=== PATIENT | female | born 1965 | race Caucasian/White ===

== ENCOUNTER 2016-04-22 09:55 | Emergency (ER) | payer OTHER ==
[~2016-04-22] VITALS: Ht 160 cm; Wt 60.0 kg
[2016-04-22 09:58] VITALS: Ht 160 cm; Wt 60.0 kg
[2016-04-22] MEDS ORDERED: ASPIRIN 325 MG TAB PO STA (10:28)
[2016-04-22] MEDS ORDERED: NITROGLYCERIN (SL) 0.4 MG TAB SL PRN (10:30)
--- NOTE | 2016-04-22 10:42 | RADRPT ---
PROCEDURE: XR Chest. CLINICAL INDICATION: Chest pain. TECHNIQUE: Single frontal view. COMPARISON: None. FINDINGS: The lungs are clear. The heart size is normal. There is no pleural effusion. There is no pneumothorax. IMPRESSION: 1. Normal chest radiograph. RPTAT: QQ .Joesph Mcdonnell MD, Date Time Electronically viewed and signed by .Joesph Mcdonnell MD, on 04/22/2016 10:42 .R/
[2016-04-22] MEDS ORDERED: TRAM-40 PO (10:44)
[2016-04-22 11:24] LABS: ALBUMIN 4.2 g/dl (3.3-4.9); CHLORIDE 103 mmol/L (97-110)
[2016-04-22 11:25] LABS: POTASSIUM 4.5 mmol/L (3.5-5.1); SODIUM 142 mmol/L (135-144)
[2016-04-22 11:27] LABS: ALBUMIN/GLOBULIN RATIO 1.16; ANION GAP 16 (8-16); ASPARTATE AMINO TRANSFERASE 33 IU/L (15-46); BILIRUBIN,INDIRECT 0.1 mg/dl (0-1.1); BILIRUBIN,TOTAL 0.1 mg/dl (0.2-1.3); BLOOD UREA NITROGEN 14 mg/dl (7-20); CARBON DIOXIDE 28 mmol/L (21-31); CREATININE 0.62 mg/dl (0.44-1.00); TOTAL PROTEIN 7.8 g/dl (6.1-8.1)
[2016-04-22 11:28] LABS: ALANINE AMINOTRANSFERASE 44 IU/L (13-69); ALKALINE PHOSPHATASE 78 IU/L (42-121); CALCIUM 9.1 mg/dl (8.4-10.2); GLUCOSE 99 mg/dl (70-220)
[2016-04-22 11:37] LABS: B-TYPE NATRIURETIC PEPTIDE 26 PG/ML (0-125)
[2016-04-22 11:43] LABS: TROPONIN-I < 0.012 ng/ml (0.00-0.12)
[2016-04-22 11:56] LABS: INR 1.04; PROTIME 13.6 Sec (12.2-14.2); PT RATIO 1.1
[2016-04-22 11:57] LABS: PARTIAL THROMBOPLASTIN TIME 30.1 Sec (25.0-35.0)
[2016-04-22 12:08] LABS: BASOPHILS % 0.3 % (0.0-2.0); EOSINOPHILS # 0.1 10^3/ul (0.0-0.5); EOSINOPHILS % 1.2 % (0.0-7.0); HEMATOCRIT 41.7 % (37.0-47.0); LYMPHOCYTES # 2.4 10^3/ul (0.8-2.9); LYMPHOCYTES % 31.4 % (15.0-51.0); MEAN CORPUSCULAR HEMOGLOBIN 29.5 pg (29.0-33.0); MEAN CORPUSCULAR HGB CONC 33.5 g/dl (32.0-37.0); MEAN CORPUSCULAR VOLUME 88.1 fl (82.0-101.0); MONOCYTE # 0.5 10^3/ul (0.3-0.9); MONOCYTES % 6.2 % (0.0-11.0); NEUTROPHIL # 4.7 10^3/ul (1.6-7.5); NEUTROPHILS % 60.9 % (39.0-77.0); PLATELET COUNT 266 10^3/UL (140-440); RED BLOOD COUNT 4.73 10^6/ul (4.20-5.40); UNCORRECTED WBC 7.8 10^3/ul (4.8-10.8); WHITE BLOOD COUNT 7.8 10^3/ul (4.8-10.8)
[2016-04-22 12:14] LABS: CONDITION 1
[2016-04-22] MEDS ORDERED: KETOROLAC 30 MG INJ IV STA (12:54)
[2016-04-22] MEDS ORDERED: IBUP-1542 PO (12:55)
--- NOTE | 2016-04-22 13:08 | ERD ---
ER Documentation Chief Complaint Date/Time DATE: 04/22/16 TIME: 13:05 Chief Complaint CHEST PAIN RADIATING TO LEFT ARM X 2 WEEKS. HPI This is a 50-year-old female with no past medical history that presents to the emergency department complaining of bilateral chest tenderness that has been intermittent for the past 2 weeks. She states the pain is a dull achy sensation and is exacerbated whenever she moves her left or right arm. She states there is no chest pressure that radiates to the neck back or jaw. She has no associated symptoms of nausea vomiting or diaphoresis. She does take tramadol and ibuprofen for her chronic back pain. She denies any shortness of breath at rest or exertion. She has no numbness tingling or loss of sensation of her bilateral upper extremities. She denies any recent remote trauma to her chest wall. She does indicate that the chest ache does improve after she takes ibuprofen. The patient indicates she has no family history of coronary artery disease in her first-degree relatives. She does not smoke cigarettes or drink alcohol ROS All systems reviewed and are negative except as per history of present illness. Medications Home Meds Active Scripts Ibuprofen* (Motrin*) 600 Mg Tab, 600 MG PO Q8, #30 TAB Prov:WHIT GERONIMO 04/22/16 Reported Medications Tramadol Hcl* (Ultram*) 50 Mg Tablet, 50 MG PO Q6H Y for PAIN, TAB 04/22/16 Allergies Allergies: Coded Allergies: No Known Allergy (Unverified , 04/22/16) Physical Exam Vitals Vital Signs Date Time Temp Pulse Resp B/P Pulse Ox O2 Delivery O2 Flow Rate FiO2 04/22/16 09:58 98.3 77 18 155/77 98 Physical Exam Constitutional:Well-developed. Well-nourished. HEENT:Normocephalic. Atraumatic.Pupils were equal round reactive to light. Moist mucous membranes.No tonsillar exudates. Neck: No nuchal rigidity. No lymphadenopathy. No posterior cervical spine tenderness or step-offs. Respiratory: Not using accessory muscles of respiration.Lungs were clear to auscultation bilaterally. No rhonchi. No rales. No wheezing. Cardiovascular: Regular rate regular rhythm.No murmurs. No rubs were appreciated.S1, S2 normal. Distal pulses are palpable 2+ bilaterally. Reproducible chest wall tenderness with no crepitus no ecchymosis no flail chest. GI: Abdomen was soft. Nontender. Non Distended. No pulsatile abdominal masses or bruits. No rebound. No guarding. Bowel sounds were present and normal. Muscle skeletal: Full range of motion of both the upper and lower extremities bilaterally.Normal muscle tone.No assymetrical calf tenderness or swelling. Skin: No petechia, no purpura. No lesions on the palms or the soles of the feet. No maculopapular rash. NEURO: Patient was alert, awake, orientated x3.No facial droop. Gait observed and normal with no ataxia.Speech had regular rate and rhythm. No focal neurological deficits. Result Diagram: 04/22/16 1109 04/22/16 1109 Results 24 hrs Laboratory Tests Test 04/22/16 11:09 Activated Partial Thromboplast Time 30.1Sec Alanine Aminotransferase (ALT/SGPT) 44IU/L Albumin 4.2g/dl Albumin/Globulin Ratio 1.16 Alkaline Phosphatase 78IU/L Anion Gap 16 Aspartate Amino Transf (AST/SGOT) 33IU/L B-Type Natriuretic Peptide 26PG/ML Basophils # 0.010^3/ul Basophils % 0.3% Blood Urea Nitrogen 14mg/dl Calcium Level 9.1mg/dl Carbon Dioxide Level 28mmol/L Chloride Level 103mmol/L Creatinine 0.62mg/dl Direct Bilirubin 0.00mg/dl Eosinophils # 0.110^3/ul Eosinophils % 1.2% Globulin 3.60g/dl Glucose Level 99mg/dl Hematocrit 41.7% Hemoglobin 14.0g/dl INR International Normalized Ratio 1.04 Indirect Bilirubin 0.1mg/dl Lymphocytes # 2.410^3/ul Lymphocytes % 31.4% Mean Corpuscular Hemoglobin 29.5pg Mean Corpuscular Hemoglobin Concent 33.5g/dl Mean Corpuscular Volume 88.1fl Mean Platelet Volume 9.0fl Monocytes # 0.510^3/ul Monocytes % 6.2% Neutrophils # 4.710^3/ul Neutrophils % 60.9% Nucleated Red Blood Cells # 0.010^3/ul Nucleated Red Blood Cells % 0.0/100WBC Platelet Count 17251^3/UL Potassium Level 4.5mmol/L Prothrombin Time 13.6Sec Prothrombin Time Ratio 1.1 Red Blood Count 4.7310^6/ul Red Cell Distribution Width 14.0% Sodium Level 142mmol/L Total Bilirubin 0.1mg/dl Total Protein 7.8g/dl Troponin I < 0.012ng/ml White Blood Count 7.810^3/ul Current Medications Medications (Trade) Dose Ordered Sig/Duncan Route PRN Reason Start Time Stop Time Status Last Admin Dose Admin Aspirin (Aspirin) 325 mg ONCE STAT PO 04/22/16 10:28 04/22/16 10:30 DC 04/22/16 10:57 Nitroglycerin (Nitroglycerin (Sl Tab) 0.4 Mg) 1 tab Q5M UP TO 3 DOSES PRN SL CHEST PAIN 04/22/16 10:30 Ketorolac Tromethamine (Toradol) 30 mg ONCE STAT IV 04/22/16 12:54 04/22/16 12:55 DC Procedures/MDM The patient presented to the emergency department complaining of chest pain. My clinical evaluation and workup was to distinguish minor causes of chest pain from acute life threatening cardiopulmonary causes such as myocardial infarction , pulmonary embolism, aortic dissection, esophageal rupture, cardiac tamponade, The patient was placed on a project manager industrial, continuous pulse oximetry and IV access established by nursing staff. The patient received aspirin and nitroglycerin with no improvement of her symptoms. Therefore she was given IV Toradol and had complete relief of her symptoms 12 Lead EKG tracing ordered and reviewed by myself showed: Normal sinus rhythm of 76 bpm and no arrhythmia. NM interval normal. QRS duration normal. No ST segment elevation No ST segment depression. No changes consistent with acute ischemia. The patients chest pain was reproduced by palpation and horizontal flexion of the arms. It was my clinical impression that the pain was a result of inflammation of the skin and subcutaneous structures of the chest wall versus myocardial ischemia. I felt the patient had low-risk chest pain and could therefore be safely discharged with close follow-up. Departure Diagnosis: Primary Impression: Costochondral chest pain Condition: Fair Patient Instructions: CostochondrWHIT Marroquin Apr 22, 2016 13:08
== END 2016-04-22 13:15 | disposition home or self-care (01) ==
LOC: E/R 09:55
DX: M94.0 Chondrocostal junction syndrome [Tietze] (principal)
CPT/HCPCS: 71010; 80053; 83880; 84484; 85025; 85610; 85730; J1885; 93005; 96374